=== PATIENT | female | born 1990 | race Hispanic/Latino ===

== ENCOUNTER → 2023-03-09 14:21 | Outpatient (CLI) | payer OTHER, SELFPAY ==
--- NOTE | 2023-03-09 | DI.US.S_ITS ---
PROCEDURE: US OB >= 14 WEEKS FETUS INDICATIONS: ANATOMY SCAN OUTSIDE/PRIOR DATING DATA: Last menstrual period (LMP): 10/20/2022. LMP-based estimated date of delivery (NATALIE): 07/27/2023 First dating scan (date and location): 03/09/2023 Estimated date of delivery (NATALIE) from first dating scan: 07/27/2023 The calculations are made using the working NATALIE of 07/27/2023 TECHNIQUE: Real-time scanning was performed of the fetus, with image documentation and biometric measurements. Endovaginal scanning: Not indicated. COMPARISON: [facility], , OB < 14 WEEKS, 01/03/2023, 21:30. FINDINGS: General: A single living intrauterine gestation is present. Presentation: Vertex Placenta: Placental position is posterior, without previa. Amniotic fluid index: 11.1 cm, normal range is 5-24 cm. Single deepest vertical pocket is 3 cm. heart rate: 132 beats per minute. Maternal cervical canal: 3.1 cm long. Normal lower limit is 2.5 cm. biometrics: Biparietal diameter: 4.5 cm, 19 weeks, 3 days. Head circumference: 16.3 cm, 19 weeks, 0 day. Abdominal circumference: 14.1 cm, 19 weeks, 2 days. Femur length: 3.2 cm, 19 weeks, 5 days. Clinically estimated gestational age: 20 weeks, 0 day. Composite gestational age from present scan: 19 weeks, 3 days. Estimated weight and percentile: 298 g, 22%. Anatomic survey: Neuro: Ventricles are non-dilated at less than 10 mm. Cisterna magna is normal at 3-11 mm. Cerebellum is normal in size and morphology. Nuchal skin fold: Normal at less than 6 mm between 14-21 weeks gestational age. Face: Nose and lips, facial profile are not well seen. Spine: No evidence for spina bifida. Heart: 4-chambered heart and ventricular outflow tracts are not well seen. Diaphragm: Diaphragm is intact. Stomach: Left-sided stomach is present. Kidneys: No hydronephrosis. Normal is less than 5 mm in 2nd trimester, less than 7 mm in 3rd trimester. Cord: 3-vessel cord has orthotopic insertion. Bladder: Normal in size. Extremities: All 4 extremities identified. IMPRESSION: 1. Single live intrauterine gestation with fetus in vertex presentation. heart rate is 132 beats per minute. Normal amount of amniotic fluid. Normal growth. Estimated weight is at 22%. 2. facial profile, four-chamber heart and outflow tracts are suboptimally evaluated due to position. Rest of the anatomic survey is normal. We strive to produce accurate, complete, and clear reports of imaging services. To assist us in improving patient care, this report was composed using standard report templates and voice recognition software. Therefore, it may contain abnormal punctuation, insertions and/or omissions. Occasional wrong-word or sound-alike substitutions may occur. Though we review the report and make efforts to correct it, we do recommend that the report be read carefully in proper context to recognize any text inaccuracies. Dictated by: Nigel Valderrama M.D. on 03/13/2023 at 17:11 Approved by: Nigel Valderrama M.D. on 03/13/2023 at 17:18
== END ==
PROVIDERS: Referring Provider Nurse Practitioner Obstetrics & Gynecology; Visit Provider Nurse Practitioner Obstetrics & Gynecology
DX: Z34.92 Encounter for supervision of normal pregnancy, unspecified, second trimester (principal); Z3A.19 19 weeks gestation of pregnancy
CPT/HCPCS: 76811; 76830

== ENCOUNTER → 2023-04-03 08:38 | Outpatient (CLI) | payer OTHER, SELFPAY ==
--- NOTE | 2023-04-03 | DI.US.S_ITS ---
PROCEDURE: US OB FOLLOW UP INDICATIONS: FOLLOW UP TO COMPLETE ANATOMY SCAN OUTSIDE/PRIOR DATING DATA: Last menstrual period (LMP): 10/20/2022. LMP-based estimated date of delivery (NATALIE): 07/27/2023. First dating scan (date and location): 03/09/2023. Estimated date of delivery (NATALIE) from first dating scan: 07/27/2023. TECHNIQUE: Real-time scanning was performed of the fetus, with image documentation and biometric measurements. Endovaginal scanning: Not performed COMPARISON: [facility], OB >= 14 WEEKS FETUS, 03/09/2023, 14:30. FINDINGS: General: A single living intrauterine gestation is present. Presentation: Vertex. Placenta: Placental position is posterior , without previa. Amniotic fluid index: 13.0 cm, normal range is 5-24 cm. Single deepest vertical pocket is 5.0 cm. heart rate: 143 beats per minute. Maternal cervical canal: 3.3 cm long. Normal lower limit is 2.5 cm. biometrics: Biparietal diameter: 5.4 cm 22 weeks 2 days Head circumference: 19.8 cm 22 weeks 0 days Abdominal circumference: 18.7 cm 23 weeks 4 days Femur length: 3.9 cm 22 weeks 4 days estimated gestational age: 23 weeks 4 days Composite gestational age from present scan: 22 weeks 4 days Estimated weight and percentile: 552 g, 18th percentile Other: Four-chamber cardiac view, both ventricular outflow tracts, facial profile, and nose/lips are visualized and appear within normal limits. IMPRESSION: 1. Single living intrauterine . 2. Estimated weight at the 18th percentile. 3. Four-chamber cardiac view, both ventricular outflow tracts, facial profile, and nose/lips are visualized and appear within normal limits. We strive to produce accurate, complete, and clear reports of imaging services. To assist us in improving patient care, this report was composed using standard report templates and voice recognition software. Therefore, it may contain abnormal punctuation, insertions and/or omissions. Occasional wrong-word or sound-alike substitutions may occur. Though we review the report and make efforts to correct it, we do recommend that the report be read carefully in proper context to recognize any text inaccuracies. Dictated by: Faisal Lou M.D. on 04/03/2023 at 14:42 Approved by: Faisal Lou M.D. on 04/03/2023 at 14:58
== END ==
PROVIDERS: Referring Provider Advanced Practice Midwife; Visit Provider Advanced Practice Midwife
DX: Z3A.22 22 weeks gestation of pregnancy; Z36.2 Encounter for other antenatal screening follow-up
CPT/HCPCS: 76816

== ENCOUNTER → 2023-05-08 07:56 | Outpatient (CLI) | payer OTHER, SELFPAY ==
[2023-05-08 10:28] LABS: Hematocrit 28.1 % (36-46); Hemoglobin 9.3 g/dL (12.0-16.0); Mean Corpuscular HGB Conc 33.1 % (30-36); Mean Corpuscular Hemoglobin 23.8 PG (26-34); Platelet Count 327 X10^3/uL (150-400); Red Cell Distribution Width 15.9 % (11.6-14.8)
[2023-05-08 10:43] LABS: Glucose 1 Hour 137 mg/dL (70-170)
[2023-05-08 10:56] LABS: Glucose Fasting 81 mg/dL (70-100)
[2023-05-08 18:15] LABS: Glucose Tol Interpretation INTERPRETATION
[2023-05-08 18:22] LABS: Glucose 2 Hour 113 mg/dL (70-140)
== END ==
PROVIDERS: Referring Provider Advanced Practice Midwife; Visit Provider Advanced Practice Midwife
DX: Z13.1 Encounter for screening for diabetes mellitus (principal); Z3A.22 22 weeks gestation of pregnancy
CPT/HCPCS: 36415; 82951; 82952; 85027

== ENCOUNTER 2023-08-01 18:26 | Inpatient (IN) | payer OTHER, SELFPAY ==
--- NOTE | 2023-08-01 18:57 | PM.OBHP.1 ---
OB HPI Date/Time Date of admission: 08/01/23 Date Patient Seen: 08/01/23 Time Patient Seen: 18:57 History of Present Condition Chief complaint: labor : 2 Para: 0 Estimated Date of Delivery: 07/27/23 Estimated Gestational Age (weeks): 40 Narrative: Elidia Jarrell is a 32 year old female at 40.5 weeks by LMP, concordant with 13 week US, here for evaluation of labor. Contractions started at 4am and have been regular and progressively more intense. No leaking of fluid. Has had some spotting throughout the day and is feeling her baby move normally. She received uncomplicated care with CN. She is accompanied by her supportive [place]. Considering an epidural but coping well at this time. History of Present care: good care, initiated at week # (13), number of visits (9) and pounds weight gain (49) Dating criteria: LMP confirmed by 1st trimester US Ultrasounds: normal 1st trimester US and normal mid trimester US Obstetrical complications: none Medical complications: none Preadmission Labs Blood type: O (+) positive -: Antibody screen: negative, GBS status: negative, HBsAG: negative, HIV: negative and RPR/VDLR: negative -: Chlamydia screen: not detected and Gonorrhea screen: not detected -: Rubella: not immune and Varicella: immune HCT: 30.4 HCAB: reactive (HCV RNA Quantitative: not detected ) Cell-free DNA: negative Narrative: 2hr GTT: 81, 137, 113 Prior (ies) History: SAB x1 Evaluation Evaluation Baseline heart rate: 140 Variability: Moderate (11-25) monitor accelerations: Present Monitor Decelerations: Absent Contraction Frequency (minutes): 3 Uterine Contraction Intensity: Strong/Firm Status: Category l Dilation (cm): 7 Effacement (%): 90 Dilation: >/=5 cm Effacement: >/=80% station: -1 Comments: Membranes intact [facility], [facility] Medical History (Updated 08/01/23 @ 19:19 by Brianda Raza CNM) Anemia Depression Family History (Updated 08/01/23 @ 19:20 by Brianda Raza CNM) Mother Cancer Grandmother Cancer Diabetes mellitus Social History (Updated 08/01/23 @ 19:21 by Brianda Raza CNM) alcohol intake: former substance use type: former substance user and marijuana Meds Home Medications and Allergies Allergies Allergy/AdvReac Type Severity Reaction Status Date / Time No Known Drug Allergies Allergy Verified 06/15/23 13:57 Review of Systems Review of Systems ROS: Yes All systems reviewed with the patient and are negative except as otherwise documented OB Exam Vital signs Blood Pressure: 129/81 Pulse Rate: 99 Temperature: 97.0 F Resp Effort & Inspection: normal respiratory effort Auscultation: clear to auscultation bilaterally Cardio Rate: regular rate Rhythm: regular rhythm Presentation: vertex Amniotic Fluid: no fluid Assessment and Plan Assessment and Plan Assessment and Plan narrative: A: Term nullipara Active labor Antibiotics not indicated FHR Cat 1 P: Admit to center Discussed anesthesia options, undecided at this time about epidural Expectant management Reassess in 4 hrs or sooner as needed
[2023-08-01 19:29] VITALS: BP 129/81; PULSE 99; TEMP 36.1
[2023-08-01] MEDS: LACTATED RINGERS 1,000 ML 100 ML IV (19:40)
[2023-08-01 19:54] LABS: Add Manual Diff / Slide Review NO; Basophils Absolute Auto 100 /uL (0-100); Basophils Percent Auto 0.6 % (0-2); Eosinophils Absolute Auto 100 /uL (0-450); Eosinophils Percent Auto 0.6 % (2-4); Hemoglobin 12.5 g/dL (12.0-16.0); Lymphocytes Absolute Auto 1300 /uL (1100-4500); Mean Corpuscular HGB Conc 33.8 % (30-36); Mean Corpuscular Hemoglobin 27.5 PG (26-34); Mean Corpuscular Volume 81.3 fL (80-100); Monocytes Absolute Auto 800 /uL (0-900); Neutrophils Absolute Auto 14400 /uL (1500-7000); Neutrophils Percent Auto 85.8 % (50-75); Platelet Count 259 X10^3/uL (150-400); Red Blood Cell Count 4.55 X10^6/uL (4.0-5.2); Red Cell Distribution Width 23.6 % (11.6-14.8); White Blood Cell Count 16.7 X10^3/uL (4.5-11.0)
[2023-08-01 20:12] LABS: Anisocytosis 2+
[2023-08-01] MEDS: OXYTOCIN PREMIX 30 UNIT/500 ML PLAST..BAG 200 UNIT IV (21:09)
--- NOTE | 2023-08-01 21:35 | PM.OBPRVD ---
Labor & Delivery Delivery date: 08/01/23 Intrapartal Events: None Cervical ripening method: none Induction method: none Delivery monitor: external FHT and external uterine Route of delivery: Episiotomy description: None L&D Laceration Description: Perineal - 1st Degree Delivery repair: chromic (3.0) Quantitative Blood Loss: 150 Anesthesia Type: Local and Other (NO2) Narrative: Elidia was admitted in active labor and progressed well without augmentation, using nitrous oxide for anesthesia. She felt the spontaneous urge to push and was confirmed complete by CE. Coaching and encouragement led to NSVB of vigorous baby boy Maynor in BENIGNO position. There was a single loose nuchal cord and the shoulders delivered easily. Apgars 8/8. [place] placed on mom's abdomen for drying and skin to skin. Cord double clamped by SOURAV and cut by AIDAN Laguerre. Pitocin 30U given IV. Cord blood collected. Gentle cord traction and single maternal push led to spontaneous Schultze delivery of an apparently intact placenta, membranes and 3 vessel cord. Fundus immediately firm, midline, U-1, scant bleeding. 2nd degree perineal laceration repaired in the usual fashion with 3-0 chromic under 1% lidocaine local. QBL 150mL. Both mother and baby skin to skin and working on as I left the room. Baby 1: gender: Male Presentation: vertex Position: Left Occiput Anterior Placenta delivery description: Spontaneous Cord Vessel Description: 3 Vessels, Nuchal Cord and Loose score (1 min): 8 score (5 min): 8 weight: 3.623 kg Plan for aftercare: Routine care
[2023-08-01] MEDS: KETOROLAC 30 MG/ML VIAL IV (23:36)
[2023-08-01] MEDS: DERMOPLAST SPRAY 20% 60 ML 1 SPRAY TOP (23:36)
[2023-08-02] MEDS: ACETAMINOPHEN 325 MG TABLET 650 MG PO ×2 (09:12→15:27)
[2023-08-02] MEDS: IBUPROFEN 600 MG TABLET PO ×2 (09:12→15:27)
--- NOTE | 2023-08-02 09:14 | PM.OBDS.1 ---
Discharge Providers Provider Date of admission: 08/01/23 18:26 Discharge Date: 08/02/23 Consults: 08/02/23 21:34 Consult to Visual Inspector Routine Comment: Discharge provider: Brianda Raza CNM Summary Hospital Course Date Patient Seen: 08/02/23 Time Patient Seen: 09:15 Diagnoses: Z34.00, o70.1 Hospital Course: PPD1: NSVB with 2nd degree perineal laceration, repaired. Ambulating, voiding and independently. Tolerating a regular diet. Pain is well controlled with PO medications. Bleeding is light, without clots. Partner is supportive and involved in care. Both parents are feeling ready to go home this evening. Peripartum Data Delivery Method: Natural Vaginal Laceration Description: Perineal - 2nd Degree Episiotomy description: None complications: none 1: Gender: Male Disposition of : home Discharge Diagnosis (1) Del w/ 2 deg lac-unsp: Status: Acute Problem Details: Routine course Status at Discharge Cognitive/behavioral status at discharge: at baseline, oriented Functional status at discharge: independent ambulation Overall status at discharge: patient is progressing back to baseline Time Spent with Patient Time attestation: Total time spent providing and/or coordinating discharge services: Objective Labs 08/01/23 19:34 Labs: Laboratory Results - last 24 hr 08/01/23 08/01/23 19:34 19:34 WBC 16.7 H RBC 4.55 Hgb 12.5 Hct 37.0 MCV 81.3 MCH 27.5 MCHC 33.8 RDW 23.6 H Plt Count 259 Neut % (Auto) 85.8 H Lymph % (Auto) 8.0 L Lyman % (Auto) 5.0 Eos % (Auto) 0.6 L Baso % (Auto) 0.6 Neut # (Auto) 33170 H Lymph # (Auto) 1300 Lyman # (Auto) 800 Eos # (Auto) 100 Baso # (Auto) 100 RBC Morphology See below Anisocytosis 2+ H Blood Type O Positive Antibody Screen Negative Exam Vital Signs (past 8 hours): BP: 109/73 mmHg HR: 75 bpm RR: 17/min T: 97.5F, Temporal Other: Fundus: firm, midline, U-1 Lochia: scant, rubra Perineum: well approximated, minimal edema Discharge Plan Discharge Plan Patient Disposition: Home Discharge orders & Medications Prescriptions: New ibuprofen 600 mg Tablet 600 mg PO Q6HR PRN (Reason: Pain, Mild (1-3)) 14 Days Qty: 60 0RF Follow up/Referrals: Brianda Raza CNM [[employer]] - 2 Weeks (2 weeks: Monday08/14/23 at 3:30pm 6 weeks: Monday09/13/23 at 9:45am) Diet/Activity/Treatments Diet: Diet as Tolerated and Regular Diet comment: Hydration and high fiber Activity: Rest in and around bed for 2 weeks, pelvic rest for 6 weeks Skin/Wound/Dressing Care Report to your healthcare provider any signs of infection, such as:: chills, fever, increased pain, unusual drainage and unusual redness Visit Report/Discharge Packet Instructions: DI for Depression Stand Alone Forms: Patient Portal/API
[2023-08-02] MEDS: MEASLES,MUMPS,RUBELLA VACC/PF 0.5 ML VIAL SUBCUT (17:52)
[2023-08-02 19:31] VITALS: BP 129/81; PULSE 99; TEMP 36.1
== END 2023-08-02 18:45 | disposition home or self-care (01) | DRG 807 ==
PROVIDERS: Admitting Provider Nurse Practitioner Obstetrics & Gynecology; Referring Provider Nurse Practitioner Obstetrics & Gynecology; Visit Provider Nurse Practitioner Obstetrics & Gynecology
DX: O70.1 Second degree perineal laceration during delivery (principal); Z37.0 Single live birth; Z3A.40 40 weeks gestation of pregnancy
CPT/HCPCS: 36415; 59050; 85025; 86850; 86900; 86901; G0379; J1885; J2590